=== PATIENT | male | born 1970 | race Caucasian/White ===

== ENCOUNTER 2017-01-10 17:04 | Emergency (ER) | payer OTHER ==
[~2017-01-10] VITALS: Ht 172.7 cm; Wt 65.8 kg
[2017-01-10 17:11] VITALS: BP 157/82
[2017-01-10] MEDS ORDERED: IBUPROFEN 600 MG TABLET PO ONE ×2 (17:28→17:30)
== END 2017-01-10 18:49 | disposition home or self-care (01) ==
LOC: ER 17:06
DX: M79.645 Pain in left finger(s) (principal); X58.XXXA Exposure to other specified factors, initial encounter; Y92.89 Other specified places as the place of occurrence of the external cause; Y93.89 Activity, other specified; Y99.8 Other external cause status
CPT/HCPCS: 73140; 99284; A4606; A6403; Z7610